=== PATIENT | male | born 1950 | race Caucasian/White ===

== ENCOUNTER → 2020-04-24 | Outpatient (CLI) | payer MEDICARE, OTHER | LOC: RAD 08:58 | DX: L72.9 Follicular cyst of the skin and subcutaneous tissue, unspecified (principal) ==

== ENCOUNTER → 2022-06-11 | Outpatient (CLI) | payer MEDICARE, OTHER | LOC: RAD 10:00 | DX: R93.89 Abnormal findings on diagnostic imaging of other specified body structures (principal) ==